=== PATIENT | female | born 1980 | race Caucasian/White ===

== ENCOUNTER 2018-07-02 16:19 | Emergency (ER) | payer SELFPAY ==
[~2018-07-02] VITALS: Ht 162.6 cm; Wt 80.0 kg
[~2018-07-02 16:19] MED LIST: LORTAB 10 PO; LORTAB 5/3255 MG PO; NAPROSYN500 MG OR; NO; NO HOME MEDS; TEAR OS; VANCOMYCIN HCL1.5GM IV
[2018-07-02 18:10] VITALS: BP 131/83
== END 2018-07-02 18:10 | disposition home or self-care (01) | DRG 563 ==
LOC: ED 16:19
PROC: 2W3EX1Z Immobilization of Right Hand using Splint (ICD-10-PCS; principal; 2018-07-02)
DX: S62.396A Other fracture of fifth metacarpal bone, right hand, initial encounter for closed fracture (principal); I10 Essential (primary) hypertension; W22.09XA Striking against other stationary object, initial encounter

== ENCOUNTER 2021-12-12 10:50 | Emergency (ER) | payer SELFPAY ==
[~2021-12-12] VITALS: Ht 162.6 cm; Wt 63.6 kg
[2021-12-12] VITALS (9 sets, daily range): BP systolic 112–149; BP diastolic 69–104
[2021-12-12] MEDS ORDERED: GABAPENTIN100 MG PO (11:09)
[2021-12-12 11:25] LABS: HEMATOCRIT 37.7 % (37.0-47.0); HEMOGLOBIN 11.8 g/dl (12.0-16.0); IMMATURE GRANULOCYTES 0.2 % (0.0-5.0); MEAN CORPUSCULAR HGB 26.8 pG CALC (26.0-32.0); MEAN CORPUSCULAR HGB CONC 31.3 g/dL CAL (32.0-36.0); NEUT# 3.83 thou/uL (2.00-7.15); RED BLOOD COUNT 4.4 mill/uL (4.20-5.60); RED CELL DISTRI WIDTH 14.5 % (11.5-15.5)
[2021-12-12 11:26] LABS: MEAN CELL VOLUME 85.7 fL CALC (80.0-100.0)
[2021-12-12 11:37] LABS: URINE BILIRUBIN - DIPSTICK NEGATIVE (NEGATIVE); URINE BLOOD DIPSTICK NEGATIVE (NEGATIVE); URINE COLOR YELLOW; URINE GLUCOSE - DIPSTICK NEGATIVE (NEGATIVE); URINE KETONE NEGATIVE (NEGATIVE); URINE LEUK ESTERASE NEGATIVE (NEGATIVE); URINE PH 5.5 (4.5-8.0); URINE PROTEIN - DIPSTICK NEGATIVE (NEG-TRACE); URINE SPECIFIC GRAVITY >=1.030; URINE UROBILINOGEN - DIPSTICK 0.2 E.U./dL (0.2)
[2021-12-12 11:39] LABS: ANION GAP 14 (6-22 (CALC)); BUN 20 mg/dL (7-17); BUN/CREATININE RATIO 32 (12-20 (CALC)); CARBON DIOXIDE 27 mmol/l (22-30); CHLORIDE 101 mmol/l (95-108); CREATININE 0.6 mg/dL (0.5-1.0); GFR FOR AFR.AMER. > 60 ML/MIN (>=60 (CALC)); GFR OTHER RACES > 60 ML/MIN (>=60 (CALC)); LIPASE 52 u/l (23-300); POTASSIUM 4.1 mmol/l (3.5-5.1); SODIUM 137 mmol/l (137-146)
[2021-12-12 11:39] LABS: URINE NITRITE - DIPSTICK NEGATIVE (Negative)
[2021-12-12 11:47] LABS: ALBUMIN 4.4 g/dL (3.2-5.0); ALKALINE PHOSPHATASE 105 u/l (38-126); BILIRUBIN, TOTAL 0.3 mg/dL (0.0-1.4); SGOT/AST 56 u/l (14-36); TOTAL PROTEIN 7.7 g/dL (6.3-8.2)
== END 2021-12-12 14:01 | disposition home or self-care (01) | DRG 103 ==
LOC: ED 10:50
PROVIDERS: Family Medicine
DX: R51.9 Headache, unspecified (principal); I10 Essential (primary) hypertension; Z87.820 Personal history of traumatic brain injury; Z20.822 Contact with and (suspected) exposure to COVID-19
CPT/HCPCS: J1100